=== PATIENT | female | born 1950 | race Caucasian/White ===

== ENCOUNTER 2017-01-03 05:41 | Day surgery (SDC) | payer OTHER ==
[~2017-01-03] VITALS: Ht 162.6 cm; Wt 77.1 kg
[~2017-01-03 05:41] MED LIST: AMARYL4 MG PO; DIOVAN HCT 31 TABLE1 PO; FLEXERIL10 MG PO; GLUCOPHAGE500 MG PO; LABETALOL HCL100 MG PO; LABETALOL HCL200 MG PO; LANTUS 3 M100 UNITS1 SC; LO-DOSE ASPIRIN81 M2 PO; MONOKET10 MG PO; POTASSIUM CITR10 MEQ PO; VALTREX50 MG/ML PO; VITAMIN D31000 UNIT PO; WELLBUTRIN XL150 MG PO; WOMEN MULTIVIT1 EACH PO; XANAX2 MG PO; ZANTAC150 MG PO; [UNRECOGNIZED DRUG - OTHER] PO
[2017-01-03 06:52] VITALS: BP 180/87
[2017-01-03 07:14] LABS: POINT-OF-CARE METER ID UU13113694
[2017-01-03 08:49] LABS: POINT-OF-CARE METER ID UU13113675
[2017-01-03 09:52] VITALS: BP 179/86
[2017-01-03 10:27] VITALS: BP 146/60
== END 2017-01-03 10:46 | disposition home or self-care (01) ==
LOC: SDC 05:41
PROVIDERS: Ophthalmology
PROC: 08B43ZZ Excision of Right Vitreous, Percutaneous Approach (ICD-10-PCS; principal; 2017-01-03)
PROC: 08QE3ZZ Repair Right Retina, Percutaneous Approach (ICD-10-PCS; principal; 2017-01-03)
DX: H33.41 Traction detachment of retina, right eye (principal); H43.391 Other vitreous opacities, right eye; E11.69 Type 2 diabetes mellitus with other specified complication; Z79.4 Long term (current) use of insulin; E78.5 Hyperlipidemia, unspecified; F32.9 Major depressive disorder, single episode, unspecified; F41.9 Anxiety disorder, unspecified; G47.30 Sleep apnea, unspecified; K21.9 Gastro-esophageal reflux disease without esophagitis; K22.70 Barrett's esophagus without dysplasia; K76.0 Fatty (change of) liver, not elsewhere classified; M19.90 Unspecified osteoarthritis, unspecified site; E66.3 Overweight; Z68.27 Body mass index [BMI] 27.0-27.9, adult; Z82.49 Family history of ischemic heart disease and other diseases of the circulatory system; Z83.3 Family history of diabetes mellitus
CPT/HCPCS: 71020; 82948; J0690; J1100; J2250; J2405; J2795; J3010; J3300